=== PATIENT | female | born 1980 | race Caucasian/White ===

== ENCOUNTER 2016-06-18 11:14 | Emergency (ER) | payer BC ==
[~2016-06-18] VITALS: Ht 170.2 cm; Wt 100.1 kg
[~2016-06-18 11:14] MED LIST: ALLERGY RELIEF10 M1 PO; ASPIRIN81 M1 PO; BACTRIM,SEPT1 TABLET PO; CLONAZEPAM1 MG PO; DIGOXIN250 MCG PO; EFFEXOR37.5 MG PO; FLONASE16 G1 BOTH NARES; INDOCIN25 MG PO; KLONOPIN0.5 M1 PO; KLONOPIN1 MG PO; LAMICTAL100 MG PO; LAMICTAL200 MG PO; LAMOTRIGINE200 MG PO; LEXAPRO10 MG PO; LEXAPRO20 MG PO; LITHIUM CARBON300 M2 PO; LITHIUM CARBON450 MG PO; LITHOBID300 MG PO; MAGIC MOUTHWASH1 ML; MOTRIN800 MG PO; MULTIVITAMIN1 EAC1 PO; NAPROXEN500 MG PO; OMEPRAZOLE40 M1 PO; PERCOCET 5/31 TABLET PO; PRAVASTATIN SOD20 MG PO; PREDNISONE20 MG PO; PRILOSEC OTC20 MG PO; PRILOSEC20 MG PO; PROPRANOLOL HCL60 MG PO; PROTONIX40 MG PO; PYRIDIUM100 MG PO; TESSALON PERLE100 MG PO; VALIUM5 MG PO; VERAPAMIL HCL80 MG PO; VITAMIN B12-FO1 EACH PO; ZANTAC150 MG PO; ZOFRAN ODT4 MG PO; ZOFRAN4 MG PO; ZONEGRAN100 MG PO; ZONISAMIDE100 MG PO
[2016-06-18 12:55] LABS: HEMATOCRIT 45.7 % (36.0-46.0); MCH 30.2 PG (29.0-34.0); MCHC 32.6 G/DL (30.0-36.0); MCV 92.7 FL (83-99); MEAN PLAT.VOLUME 10.2 uM^3 (9.5-12.4); PLATELET COUNT 366 K/uL (156-360); RBC DIS.WIDTH-CV 12.9 % (11.8-14.6); RBC DIS.WIDTH-SD 43.9 % (39-53); RED BLOOD COUNT 4.93 M/uL (3.80-5.20)
[2016-06-18 13:07] LABS: CHLORIDE 109 mEq/L (99-109); POTASSIUM 4.4 mEq/L (3.7-5.4); SODIUM 140 mEq/L (136-147)
[2016-06-18 13:09] LABS: GLUCOSE 99 mg/dL (70-99)
[2016-06-18 13:10] LABS: ANION GAP 9 MEQ/L (2-14)
[2016-06-18 13:11] LABS: TOTAL BILIRUBIN 0.5 mg/dL (0.0-1.0)
[2016-06-18 13:12] LABS: ALKALINE PHOSPHATASE 70 IU/L (3-129)
[2016-06-18 13:13] LABS: GFR ESTIMATE (CALCULATED) > 59 mL/min/
[2016-06-18 13:14] LABS: UREA NITROGEN (BUN) 15 mg/dL (9-23)
[2016-06-18 13:16] LABS: LIPASE 20 U/L (1.0-51.0)
[2016-06-18 13:44] VITALS: BP 148/97
== END 2016-06-18 13:46 | disposition home or self-care (01) ==
LOC: EME 11:14 → EXP 11:15
PROVIDERS: Physician Assistant Medical
DX: K29.70 Gastritis, unspecified, without bleeding (principal); K21.9 Gastro-esophageal reflux disease without esophagitis; R56.9 Unspecified convulsions; F17.200 Nicotine dependence, unspecified, uncomplicated
CPT/HCPCS: 80053; 83690; 85027; 99281; 99284

== ENCOUNTER 2016-11-12 20:52 | Emergency (ER) | payer BC ==
[~2016-11-12] VITALS: Ht 170.2 cm; Wt 99.9 kg
[2016-11-12 23:07] LABS: INFLUENZA A VIRAL ANTIGEN NEGATIVE; INFLUENZA B VIRAL ANTIGEN NEGATIVE
[2016-11-13 00:27] LABS: HEMATOCRIT 43.3 % (36.0-46.0); MCH 30.7 PG (29.0-34.0); MCHC 32.8 G/DL (30.0-36.0); MCV 93.5 FL (83-99); MEAN PLAT.VOLUME 11.2 uM^3 (9.5-12.4); PLATELET COUNT 299 K/uL (156-360); RBC DIS.WIDTH-CV 13.2 % (11.8-14.6); RBC DIS.WIDTH-SD 45.1 % (39-53); RED BLOOD COUNT 4.63 M/uL (3.80-5.20); WHITE BLOOD COUNT 14.3 K/uL (4.1-10.2)
[2016-11-13 00:29] LABS: ADD MIUA? YES; BILIRUBIN NEGATIVE; BLOOD NEGATIVE; COLOR YELLOW ((YELLOW)); GLUCOSE (STRIP) NEGATIVE; KETONES NEGATIVE; LEUKOCYTES NEGATIVE; NITRITE NEGATIVE; PROTEIN (STRIP) 30; SPECIFIC GRAVITY 1.021 (1.000-1.030)
[2016-11-13 00:34] LABS: CHLORIDE 108 mEq/L (99-109); POTASSIUM 3.5 mEq/L (3.7-5.4); SODIUM 138 mEq/L (136-147)
[2016-11-13 00:37] LABS: GLUCOSE 98 mg/dL (70-99)
[2016-11-13 00:38] LABS: ANION GAP 8 MEQ/L (2-14)
[2016-11-13 00:38] LABS: BACTERIA NONE SEEN /HPF; EPITHELIAL CELLS RARE /HPF; MUCUS NONE SEEN /LPF; UCUL ADDED? NO; WHITE BLOOD CELLS 0-5 /HPF (0-5)
[2016-11-13 00:39] LABS: TOTAL BILIRUBIN 0.3 mg/dL (0.0-1.0)
[2016-11-13 00:40] LABS: ALKALINE PHOSPHATASE 63 IU/L (3-129); GFR ESTIMATE (CALCULATED) > 59 mL/min/
[2016-11-13 00:41] LABS: UREA NITROGEN (BUN) 14 mg/dL (9-23)
[2016-11-13] MEDS ORDERED: LEVAQUIN750 MG PO (00:44)
[2016-11-13] MEDS ORDERED: HYCODAN SYRUP480 ML PO (00:46)
[2016-11-13 00:49] LABS: QUANTITATIVE HCG < 4.0 MIU/ML
[2016-11-13 01:02] VITALS: BP 138/82
[2016-11-13 07:58] LABS: INTERNAL CONTROL VALID? YES
== END 2016-11-13 01:04 | disposition home or self-care (01) ==
LOC: EME 20:52 → EMP 20:52 → EME 11-13 01:04
PROVIDERS: Physician Assistant
DX: J18.9 Pneumonia, unspecified organism (principal); K21.9 Gastro-esophageal reflux disease without esophagitis; Z87.891 Personal history of nicotine dependence
CPT/HCPCS: 71020; 80053; 81003; 84702; 85027; 86713 90; 87449; 87502; 87651 90; 99281; 99285

== ENCOUNTER 2017-10-30 01:05 | Emergency (ER) | payer BC ==
[~2017-10-30] VITALS: Ht 167.6 cm; Wt 91.6 kg
[~2017-10-30 01:05] MED LIST changes: +HYCODAN SYRUP480 ML PO; +LEVAQUIN750 MG PO
[2017-10-30 01:48] LABS: HEMATOCRIT 39.4 % (36.0-46.0); HEMOGLOBIN 13.4 G/DL (11.9-15.5); MCH 31.6 PG (29.0-34.0); MCV 92.9 FL (83-99); PLATELET COUNT 333 K/uL (156-360); RBC DIS.WIDTH-CV 12.4 % (11.8-14.6); RBC DIS.WIDTH-SD 42.9 % (39-53); RED BLOOD COUNT 4.24 M/uL (3.80-5.20); WHITE BLOOD COUNT 14.5 K/uL (4.1-10.2)
[2017-10-30 02:01] LABS: CHLORIDE 112 mEq/L (99-109); POTASSIUM 4.2 mEq/L (3.7-5.4); SODIUM 140 mEq/L (136-147)
[2017-10-30 02:03] LABS: GLUCOSE 121 mg/dL (70-99)
[2017-10-30 02:07] LABS: CREATININE 0.8 mg/dL (0.6-1.3); GFR ESTIMATE (CALCULATED) > 59 mL/min/; UREA NITROGEN (BUN) 14 mg/dL (9-23)
[2017-10-30 02:15] LABS: QUANTITATIVE HCG < 4.0 MIU/ML
[2017-10-30 04:13] VITALS: BP 148/92
== END 2017-10-30 04:14 | disposition home or self-care (01) ==
LOC: EME 01:05
PROVIDERS: Emergency Medicine
DX: S16.1XXA Strain of muscle, fascia and tendon at neck level, initial encounter (principal); F32.9 Major depressive disorder, single episode, unspecified; K21.9 Gastro-esophageal reflux disease without esophagitis; F41.9 Anxiety disorder, unspecified; Z88.5 Allergy status to narcotic agent; Z86.69 Personal history of other diseases of the nervous system and sense organs; Z87.891 Personal history of nicotine dependence
CPT/HCPCS: 70491; 80048; 84702; 85027; 99281; 99284; J1885